=== PATIENT | male | born 1990 | race Caucasian/White ===

== ENCOUNTER 2017-12-01 15:57 | Emergency (ER) | payer SELFPAY ==
--- NOTE | 2017-12-01 17:19 | EDM.PDOC ---
ED HPI GENERAL MEDICAL PROBLEM - General Chief Complaint: General Stated Complaint: INJURED HAND Time Seen by Provider: 12/01/17 17:13 Source of Information: Reports: Patient History Limitations: Reports: No Limitations - History of Present Illness INITIAL COMMENTS - FREE TEXT/NARRATIVE: Patient is a 27-year-old gentleman who presents to the emergency department this afternoon with a complaint of right hand pain. States last evening he accidentally struck right hand on glass table. Pain persisted today, so patient decided to present to the emergency department. Patient denies any other injury. 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 [No Known Home Meds] 12/01/17 [History] ED ROS GENERAL - Review of Systems Review Of Systems: ROS reveals no pertinent complaints other than HPI. Constitutional: Reports: No Symptoms HEENT: Reports: No Symptoms Respiratory: Reports: No Symptoms Cardiovascular: Reports: No Symptoms Endocrine: Reports: No Symptoms GI/Abdominal: Reports: No Symptoms : Reports: No Symptoms Musculoskeletal: Reports: Hand Pain Skin: Reports: No Symptoms Neurological: Reports: No Symptoms Psychiatric: Reports: No Symptoms Hematologic/Lymphatic: Reports: No Symptoms Immunologic: Reports: No Symptoms ED EXAM, GENERAL - Physical Exam Exam: See Below Exam Limited By: No Limitations General Appearance: Alert, WD/WN, No Apparent Distress Throat/Mouth: Normal Inspection, Normal Oropharynx, No Airway Compromise, Perioral Cyanosis Head: Atraumatic Neck: Normal Inspection Respiratory/Chest: No Respiratory Distress Extremities: Other (Right hand dorsal aspect edema without obvious deformity) Neurological: Alert, Oriented, Normal Cognition Psychiatric: Normal Affect, Normal Mood Skin Exam: Warm, Dry, Intact, Normal Color, No Rash Course - Vital Signs Last Recorded V/S: Last Vital Signs Temp 98.2 F 12/01/17 16:09 Pulse 58 L 12/01/17 16:09 Resp 20 12/01/17 16:09 BP 143/86 H 12/01/17 16:09 Pulse Ox 98 12/01/17 16:09 - Orders/Labs/Meds Orders: Active Orders 24 hr Category Date Time Status Hand Comp Min 3V Rt [CR] Stat Exams 12/01/17 16:17 Ordered - Radiology Interpretation Free Text/Narrative:: Right hand x-ray shows distal fifth metacarpal fracture - Re-Assessments/Exams Free Text/Narrative Re-Assessment/Exam: 12/01/17 17:17 Patient afebrile, nontoxic appearing, vital signs stable. Patient refused temporary splint. Patient states that he will not follow-up with orthopedic surgery and feels he does not need a temporary splint this time. Patient was advised that if discomfort persists or if he changes his mind to please return to the emergency department. Alexandr bandage was applied and proper care described. Departure - Departure Time of Disposition: 17:19 Disposition: Home, Self-Care 01 Condition: Good Clinical Impression: Metacarpal bone fracture Qualifiers: Encounter type: initial encounter Metacarpal bone: fifth Fracture type: closed Metacarpal location: neck Fracture alignment: displaced Laterality: right Qualified Code(s): S62.336A - Displaced fracture of neck of fifth metacarpal bone, right hand, initial encounter for closed fracture - Discharge Information Instructions: Metacarpal Fracture, [id number] Referrals: PCP,Not In Area [Primary Care Provider] - Additional Instructions: Follow-up with Dr. Marquez, orthopedic surgery if you change your mind. Return to emergency department if symptoms continue or worsen. - My Orders Last 24 Hours: My Active Orders 12/01/17 16:17 Hand Comp Min 3V Rt [CR] Stat - Assessment/Plan Last 24 Hours: My Active Orders 12/01/17 16:17 Hand Comp Min 3V Rt [CR] Stat Assessment:: Right fifth metacarpal fracture Plan: Follow-up with orthopedic
== END 2017-12-01 17:30 | disposition home or self-care (01) ==
LOC: KA.ED 15:57
DX: S62.336A Displaced fracture of neck of fifth metacarpal bone, right hand, initial encounter for closed fracture (principal); W22.8XXA Striking against or struck by other objects, initial encounter
CPT/HCPCS: 73130-RT; 99283